=== PATIENT | female | born 1945 | race Caucasian/White ===

== ENCOUNTER → 2016-12-18 | Day surgery (SDC) | payer MEDICARE ==
[~2016-12-18] VITALS: Ht 157.5 cm; Wt 65.8 kg
[~2016-12-18] MED LIST: *HYDROmorphone PF 1 MG VIAL PERIprocedural Use ONLY ONE; ACETAMINOPHEN 1000 MG/100 ML VIAL IV ONE; BUPIVACAINE LIPOSOME PF 1.3% 20 ML VIAL INFIL ONE; BUPR300T PO; CHLORHEXIDINE GLUCONATE 2 % 1 PACK (2 CLOTHS) TOPICAL PRN; DILA2TAB2 PO; DO NOT ADM ANY ANTICOAGULANT DRUGS PRN; DULO1CAP2 PO; ERYTHROMYCIN 0.5% OPTH OINT 1 GM TUBO ONE; ERYTHROMYCIN 0.5% OPTH OINT 3.5 GM TUBO ONE; FAMOTIDINE 20 MG/2 ML VIAL ONE; FLUT1SPR5 EACH NARE; GABA100C4 PO; GELFOAM SIZE 100 ONE; GENTAMICIN SULFATE 80 MG/2 ML VIAL ONE; HYDR-3583 PO; INSULIN HUMAN REGULAR 1,000 UNITS/10 ML VIAL SQ PRN; LACTATED RINGER'S 1000 ML INJ 1,000 ML IV ONE; LACTATED RINGER'S 1000 ML INJ 1,000 ML IV SCH; LACTATED RINGER'S 1000 ML IV PRN; LEVO125T4 PO; LIDOCAINE 1%/EPINEPHrine 1:100,000 SOLN 20 ML VIAL ONE; MEDR4PAK PO; MELO-1 PO; MEPERIDINE HCL 50 MG/ML VIAL ONE; METOPROLOL TARTRATE 25 MG TAB PO PRN; MIDAZOLAM HCL 2 MG/2 ML VIAL ONE; ONDANSETRON HCL 4 MG/2 ML VIAL IV PUSH ONE; PHENYLEPH/NS 1000 MCG/10 ML SYR IV ONE; POVIDONE IODINE 5% (ANTISEPSIS KIT) 4 APPLICATIONS EACH NARE PRN; PROPOFOL 200 MG/20 ML AMP IV ONE; SODIUM CHLORID 0.9% 500 ML IV PRN; SUMA25TA2 PO; TETRACAINE 0.5% OPTH SOLN 2 ML BTL ONE; TETRACAINE 0.5% OPTH SOLN 4 ML BTL LEFT EYE ONE; THROMBIN (TOPICAL) 5,000 UNIT VIAL ONE; TRAM50TA PO; VALA500T PO; VALP250C PO; ZOLP10TA3 PO; ceFAZolin 2 GM PREMIX 50 ML IV SCH; ceFAZolin INJ 1,000 MG VIAL IV ONE; ePHEDrine/NS 25 MG/5 ML SYR IV ONE; fentaNYL CITRATE 250 MCG/5 ML AMP ONE
[2016-12-18 07:37] VITALS: BP 109/60; PULSE 76; RESP 18; TEMP 97.9; O2SAT 95
--- NOTE | 2016-12-18 09:38 | HHI.NSPN ---
History Chief Complaint: right lateral leg and left anterior thigh pain Interval History 71-year-old female with history of chronic progressive low back pain with greater than one year of progressive severe right lateral lower extremity pain primarily L5 distribution. In the past couple of months she has developed progressive left anterior thigh pain. Exam Results Vital Signs Date Time Temp Pulse Resp B/P Pulse Ox O2 Delivery O2 Flow Rate FiO2 12/18/16 07:37 97.9 76 18 109/60 95 Physical Examination Respirations clear to auscultation Cardiac regular without murmur Abdomen soft nontender No extremity edema Posterior tibial pulses 2+ bilateral Awake alert oriented conversant and appropriate Reasonable judgment and insight No evidence of anxiety or depression Sensation intact to light touch lower extremities Strength is within normal limits major flexion and extension groups, inversion and eversion of the foot right and left lower extremity No ankle clonus Lab, Micro, Other Results Due to the patient's new onset left anterior thigh pain, a stat MRI of the lumbar spine was obtained preoperative to ensure that there was not new left L4 nerve compression. The study reveals significant progression of the patient's previously noted right L4 5 herniated nucleus pulposus, now with a more acute appearing component causing severe canal stenosis and extending up to the level of the right L4 pedicle. In addition there is no moderate left L4 5 foraminal stenosis due to ligament hypertrophy, with impingement on the exiting left L4 nerve root. Medical Decision Making Impression and Plan Impression: 1. Progression of right L4 5 herniated nucleus pulposus now with a large more acute appearing component was severe canal stenosis 2. Left L4 5 foraminal stenosis 3. Right L5 radiculopathy 4. Left L4 radiculopathy Plan: Findings were discussed and the preoperative holding area with the patient in the presence of the nursing staff. I discussed the treatment options with her. She has inquired regarding the low back pain. I advised her that the current procedure is primarily aimed at resolving the lower extremity symptoms and not necessarily the low back pain. I advised her that she has multilevel degenerative disease without significant instability and the facets at the L4 5 level. Reasonably intact. I do not see definite indication for a fusion in this patient and advised her that the success rate with effusion is probably only moderate. She appears understand the above and wishes to proceed with only the L4 5 laminectomy and discectomy. I advised her that we will need to also do a left L4 5 foraminotomy for decompression of the left L4 nerve root which is essentially the same exposure and decompression as the procedure which was initially planned. The procedure was fully discussed in detail. I have answered all her questions she appears to understand all the above and wishes to proceed with surgery today. Dhaval Zaman MD Dec 18, 2016 09:37
--- NOTE | 2016-12-18 09:45 | RADRPT ---
EXAM DATE/TIME: 12/18/2016 08:36 [facility] COMPARISON: No previous studies available for comparison. [facility], MRI [facility] Spine, February 06, 2016 INDICATIONS : Right leg pain and weakness with inability to ambulate. MEDICAL HISTORY : None. SURGICAL HISTORY : section. rt shoulder, rt hip, partial rt lung removal ENCOUNTER: Initial ACUITY: 1 day PAIN SCORE: 3/10 LOCATION: lower back TECHNIQUE: Multiplanar multisequence MRI of the lumbar spine was performed without contrast. FINDINGS: The most caudal appearing lumbar vertebra is numbered as L5. VERTEBRAE: Bone marrow signal is within normal limits. There is no anterolisthesis or retrolisthesis. CONUS: Normal level and configuration. T12-L1: There is a small central disc protrusion. However, no significant spinal canal stenosis or neural for aminal narrowing is present. L1-L2: There is disc desiccation with mild decreased disc height and a diffuse disc bulge. There is mild fac et hypertrophy. No spinal canal stenosis or neural foraminal narrowing is present. L2-L3: There is disc desiccation with a diffuse disc bulge and mild facet hypertrophy. No spinal canal steno sis is present. There is mild right neural foraminal narrowing. L3-L4: There is decreased disc height with disc desiccation and there is a small right paracentral disc prot rusion that effaces the right lateral recess and displaces the right L4 nerve root. There is overall no spinal canal stenosis. There is mild right neural foraminal stenosis. L4-L5: There is a large disc herniation in a central to right paracentral location it likely represents an e xtruded disc. It causes severe spinal canal stenosis with loss of CSF signal around the nerve roots a nd more superiorly effaces the right lateral recess. There is moderate facet and ligamentum flavum hy pertrophy at this level. There is at least mild left neural foraminal stenosis. L5-S1: There is moderate facet hypertrophy and no disc herniation, canal stenosis, or neural foraminal narro wing is visualized. The visualized paraspinous structures demonstrate no acute finding. CONCLUSION: 1. There is a large disc herniation/extrusion at the L4-L5 level in a central to right paracentral lo cation that causes severe spinal canal stenosis. 2. There is a small right paracentral disc protrusion at the L3-L4 level that effaces the right later al recess and displaces the descending right L4 nerve root. Paolo Jarvis MD on December 18, 2016 at 9:38 Board Certified Radiologist. This report was verified electronically.
--- NOTE | 2016-12-18 13:21 | PD.OP ---
Operative Report Date of Surgery: Dec 18, 2016 Preoperative Diagnosis: (1) Herniated nucleus pulposus, lumbar (2) Lumbar radiculopathy (3) Lumbar canal stenosis (4) Foraminal stenosis of lumbar region Large L4 5 herniated nucleus pulposis was sequestered fragment Right L4 5 foraminal stenosis Left L5 radiculopathy Right L4 radiculopathy L4 5 stenosis Postoperative Diagnosis: (1) Herniated nucleus pulposus, lumbar (2) Lumbar radiculopathy (3) Lumbar canal stenosis (4) Foraminal stenosis of lumbar region Large L4 5 herniated nucleus pulposis was sequestered fragment Right L4 5 foraminal stenosis Left L5 radiculopathy Right L4 radiculopathy L4 5 stenosis Procedure: 1. Bilateral L4 5 decompressive semi-laminectomy, right medial facetectomy- microtechnique 2. Right L4 5 discectomy, resection large sequestered and subannular herniated nucleus pulposus 3. Left L4 5 foraminotomy Anesthesia: Gen. Surgeon: Dhaval Zaman Brand Executive(s): Ayleen Ramirez Operation and Findings: Procedure in detail: The patient was brought into the operating room and general endotracheal anesthesia induced without difficulty. BRITTA hose and sequential compression devices were placed. The Acuña catheter was placed. Lines were established by anesthesia. The patient was positioned on the concentric Abdifatah table with the side bolsters and all extremities appropriately padded. Appropriate time-out procedure was performed with all personnel present and in agreement. 1% Xylocaine with epinephrine was used for local infiltration over the incision site which was made just to the right of midline at the L4 5 level. The incision was carried sharply down to the lumbodorsal fascia which was incised adjacent to the spinous processes. Bryan elevator was used for subperiosteal elevation of paraspinous musculature and fascia away from the lamina and spinous process. The deep self-retaining retractor was placed. The appropriate levels were verified with intraoperative C-arm. Microscope was moved into place and used for the remainder of the procedure including the closure. At the L4 5 level starting on the right side and then working across the midline to the opposite side, the TPS drill with a 5 mm bone bur followed by the 4 mm severo bur was used to remove the inferior two thirds of the more cephalad lamina and the superior aspect of the more caudal lamina along with a moderate amount of the right medial facet, taking care not to disrupt the integrity of the facet or pars intra-articularis. The hypertrophied ligamentum flavum at each level was elevated away from the thecal sac with the thin ligament dissector and resected with the 15 blade knife and the Kerrison rongeur out to the level of the deep lateral recess to completely decompress the thecal sac and exiting nerve roots. Upon gentle retraction of the thecal sac at the right L4 5 level, large pieces of sequestered soft herniated nucleus pulposis were immediately encountered ventral and slightly lateral to the thecal sac. These were removed piecemeal using the long and short blunt nerve hooks and the reverse curette along with the pituitary micro-biopsy forceps. Some of the sequestered fragments that extended across the midline to the left side as well as cephalad up to the level of the right L4 pedicle. There were numerous fragments, and it required quite a bit of cautious exploration along the ventral spinal canal to remove all of the fragments. After the sequestered fragments were removed, the 11 blade knife was used to incise the central to right L4 5 disc and annulus. Numerous pieces of herniated disc material were encountered beneath the posterior longitudinal ligament and annulus, both of which were away from the underlying vertebral body by the extensive disc herniation. Once most of the central disc herniation was removed, there was a large tear in the central annulus which was encountered. Annulus was quite loose from the underlying disc herniation, and much of the annulus was removed in order to alleviate any compression on the ventral thecal sac from the torn annulus. Any loose pieces of disc material within the L4 5 intervertebral space were carefully removed with the pituitary biopsy forceps. Once the decompression and discectomy were completed, the integrity of the L4 5 level including the facet was evaluated by intraoperative distraction and manipulation of the L4 5 vertebral bodies and facet. There did not appear to be any significant instability, and the facet capsule was intact and relatively normal in appearance. Thus despite the severity of the disc herniation and the lack of significant residual disc material in the interspace, there was no definite evidence of instability which would require a fusion. The exiting nerve roots were followed to the level of the medial pedicle to ensure that they were well decompressed. At the L4 5 level on the left side, the superior aspect of the more inferior facet along with hypertrophied ligament at the medial foramen were removed with the Kerrison rongeur to perform the left L4 5 foraminotomy. The nerve roots appeared well decompressed at the end of the procedure. No spinal fluid leakage was encountered. The disc and annulus at each level was visualized to make sure that there was no significant disc displacement or herniation. Bleeding was carefully controlled with the bipolar forceps. The closure was performed with 0 Vicryl interrupted for the deep and superficial fascia, with 3-0 Vicryl interrupted subcutaneous closure, and 4-0 Vicryl running subcuticular closure. A dressing of sterile Mastisol, Steri- Strips, and Primapore was placed. The patient was taken to recovery room in stable condition. All counts were correct at the end of the case. Estimated blood loss was 50 cc. No specimen was sent to pathology Dhaval Zaman MD Dec 18, 2016 13:21
--- NOTE | 2016-12-18 14:53 | RADRPT ---
EXAM DATE/TIME: 12/18/2016 10:29 [facility] COMPARISON: No previous studies available for comparison. INDICATIONS : Herniated disk. MEDICAL HISTORY : None. SURGICAL HISTORY : None. ENCOUNTER: Initial ACUITY: 1 day PAIN SCORE: 0/10 LOCATION: Bilateral lumbar spine FINDINGS: A single coned-down crosstable lateral view of the lower lumbar spine was obtained using a matrix cam era. This demonstrates a metallic probe posterior to L4-5 disc space. Degenerative disc changes are p resent with disc space narrowing at this level. The study is labeled assuming 5 nonrib-bearing lumbar type vertebra. CONCLUSION: Limited localization study. Marty Myles MD on December 18, 2016 at 14:50 Board Certified Radiologist. This report was verified electronically.
[2016-12-18 15:09] VITALS: BP 95/58; PULSE 69; RESP 16; TEMP 97; O2SAT 94
== END | disposition home or self-care (01) ==
LOC: HSDC 06:52
PROVIDERS: ATTEND Neurological Surgery
DX: M51.16 Intervertebral disc disorders with radiculopathy, lumbar region (principal); M48.06 Spinal stenosis, lumbar region
CPT/HCPCS: 00630; 63030; 72020; 72148; 76000; C9290; J0131; J0690; J1170; J1580; J2175; J2250; J2370; J2405; J3010; J7120

== ENCOUNTER → 2017-12-02 | Outpatient (CLI) | payer MEDICARE ==
[~2017-12-02] MED LIST changes: -*HYDROmorphone PF 1 MG VIAL PERIprocedural Use ONLY ONE; -ACETAMINOPHEN 1000 MG/100 ML VIAL IV ONE; +ALPR0.25 PO; -BUPIVACAINE LIPOSOME PF 1.3% 20 ML VIAL INFIL ONE; +CALC1TAB87 PO; -CHLORHEXIDINE GLUCONATE 2 % 1 PACK (2 CLOTHS) TOPICAL PRN; +COMMODE 3-IN-11 MIS; +CPMMACHINE; -DILA2TAB2 PO; -DO NOT ADM ANY ANTICOAGULANT DRUGS PRN; -ERYTHROMYCIN 0.5% OPTH OINT 1 GM TUBO ONE; -ERYTHROMYCIN 0.5% OPTH OINT 3.5 GM TUBO ONE; -FAMOTIDINE 20 MG/2 ML VIAL ONE; -GELFOAM SIZE 100 ONE; -GENTAMICIN SULFATE 80 MG/2 ML VIAL ONE; -HYDR-3583 PO; +HYDR2TAB PO; -INSULIN HUMAN REGULAR 1,000 UNITS/10 ML VIAL SQ PRN; -LACTATED RINGER'S 1000 ML INJ 1,000 ML IV ONE; -LACTATED RINGER'S 1000 ML INJ 1,000 ML IV SCH; -LACTATED RINGER'S 1000 ML IV PRN; -LIDOCAINE 1%/EPINEPHrine 1:100,000 SOLN 20 ML VIAL ONE; -MEDR4PAK PO; -MELO-1 PO; +MELO15TA20; -MEPERIDINE HCL 50 MG/ML VIAL ONE; -METOPROLOL TARTRATE 25 MG TAB PO PRN; -MIDAZOLAM HCL 2 MG/2 ML VIAL ONE; +OMEP20TA93 PO; -ONDANSETRON HCL 4 MG/2 ML VIAL IV PUSH ONE; -PHENYLEPH/NS 1000 MCG/10 ML SYR IV ONE; -POVIDONE IODINE 5% (ANTISEPSIS KIT) 4 APPLICATIONS EACH NARE PRN; +PRAV20TA2 PO; -PROPOFOL 200 MG/20 ML AMP IV ONE; -SODIUM CHLORID 0.9% 500 ML IV PRN; +SUCR1TAB PO; -TETRACAINE 0.5% OPTH SOLN 2 ML BTL ONE; -TETRACAINE 0.5% OPTH SOLN 4 ML BTL LEFT EYE ONE; -THROMBIN (TOPICAL) 5,000 UNIT VIAL ONE; +VITA2000 PO; +WALKER WHEELS/F1 MIS; -ceFAZolin 2 GM PREMIX 50 ML IV SCH; -ceFAZolin INJ 1,000 MG VIAL IV ONE; -ePHEDrine/NS 25 MG/5 ML SYR IV ONE; -fentaNYL CITRATE 250 MCG/5 ML AMP ONE
== END ==
LOC: CPRE 10:13
PROVIDERS: ATTEND Orthopaedic Surgery
DX: M17.11 Unilateral primary osteoarthritis, right knee (principal); M79.609 Pain in unspecified limb

== ENCOUNTER 2017-12-09 05:41 | Inpatient (IN) | payer MEDICARE ==
[~2017-12-09] VITALS: Ht 157.5 cm; Wt 68.8 kg
[~2017-12-09 05:41] MED LIST changes: -COMMODE 3-IN-11 MIS; -CPMMACHINE; -MELO15TA20; -OMEP20TA93 PO; -PRAV20TA2 PO; -SUCR1TAB PO; -TRAM50TA PO; -VALP250C PO; -WALKER WHEELS/F1 MIS
[2017-12-09] MEDS ORDERED: DEXAMETHASONE SOD PHOS 20 MG/5 ML VIAL IV PUSH ONE (06:15)
[2017-12-09] MEDS ORDERED: LACTATED RINGER'S 1000 ML IV PRN (06:15)
[2017-12-09] MEDS ORDERED: POVIDONE IODINE 7.5% SCRUB 118 ML BOTTLE TOPICAL SCH (06:15)
[2017-12-09] MEDS ORDERED: SODIUM CHLORID 0.9% 500 ML IV PRN (06:15)
[2017-12-09] MEDS ORDERED: POVIDONE IODINE 5% (ANTISEPSIS KIT) 4 APPLICATIONS EACH NARE PRN (06:15)
[2017-12-09] MEDS ORDERED: METOPROLOL TARTRATE 25 MG TAB PO PRN (06:15)
[2017-12-09] MEDS ORDERED: VANCOMYCIN 1 GM/200 ML PREMIX ON-CALL IV SCH (06:15)
[2017-12-09] MEDS ORDERED: CHLORHEXIDINE GLUCONATE 4% SOLN 120 ML BTL TOPICAL SCH (06:15)
[2017-12-09] MEDS ORDERED: CHLORHEXIDINE GLUCONATE 2 % 1 PACK (2 CLOTHS) TOPICAL PRN (06:15)
[2017-12-09] MEDS ORDERED: PRAV20TA2 PO (06:32)
[2017-12-09] MEDS ORDERED: SUCR1TAB PO (06:34)
[2017-12-09] MEDS ORDERED: OMEP20TA93 PO (06:34)
[2017-12-09 06:39] VITALS: PULSE 71
--- NOTE | 2017-12-09 07:15 | HHI.DCPOC ---
Discharge Care Plan Diagnosis: (1) Primary localized osteoarthrosis, lower leg (2) Status post total knee replacement, right Your Health Problems Are: Difficulty with ADL Goals to Promote Your Health * To prevent worsening of your condition and complications * To maintain your health at the optimal level Directions to Meet Your Goals Take your medications as prescribed Follow your dietary instruction Follow activity as directed Keep your appointments as scheduled Take your immunizations and boosters as scheduled If your symptoms worsen call your PCP, if no PCP go to Urgent Care Center or Emergency Room Smoking is Dangerous to Your Health. Avoid second hand smoke Call the 24-hour hour crisis hotline for domestic abuse at Ahmet Hayward Dec 09, 2017 07:15
--- NOTE | 2017-12-09 07:16 | HHI.FF ---
Face to Face Verification Diagnosis: (1) Status post total knee replacement, right (2) Primary localized osteoarthrosis, lower leg Physical Therapy Gait training, Transfer training, bed to chair Knee: Total knee Right LE Weight Bearing: WB as tolerated Right LE Range of Motion: Active ROM Nursing Nursing: Lazarus teaching Dressing Changes: Do not change dressing Additional Instructions First dressing change in the office. I have seen patient Sahara Fajardo on 12/09/17. My clinical findings support the need for the requested home health care services because: Limited ability to care for self High risk of falls I certify that my clinical findings support that this patient is homebound because: Post-op weakness Unsteady gait/balance Ahmet Hayward Dec 09, 2017 07:16
[2017-12-09] MEDS ORDERED: CPMMACHINE (07:18)
[2017-12-09] MEDS ORDERED: COMMODE 3-IN-11 MIS (07:18)
[2017-12-09] MEDS ORDERED: WALKER WHEELS/F1 MIS (07:18)
[2017-12-09] MEDS ORDERED: BUPIVACAINE LIPOSOME PF 1.3% 20 ML VIAL ONE (07:23)
[2017-12-09] MEDS ORDERED: SODIUM CHLORIDE 0.9% 20 ML VIAL ONE (07:24)
[2017-12-09] MEDS ORDERED: ACETAMINOPHEN 1000 MG/100 ML 100 ML IV ONE (07:36)
[2017-12-09] MEDS ORDERED: MIDAZOLAM HCL 2 MG/2 ML VIAL ONE (07:37)
[2017-12-09] MEDS ORDERED: HYDROmorphone HCL PF 2 MG/ML VIAL ONE (07:37)
[2017-12-09] MEDS: ceFAZolin 2 GM PREMIX 50 ML IV SCH ×2 (08:25→08:35)
[2017-12-09] MEDS ORDERED: ROPIVACAINE PERI-ARTICULAR INJECTION. P-ARTICULR SCH ×5 (08:30)
[2017-12-09] MEDS ORDERED: SODIUM CHLORIDE 0.9% IV SCH ×2 (08:30→13:00)
[2017-12-09] MEDS ORDERED: TRANEXAMIC ACID IV SCH ×2 (08:30→13:00)
[2017-12-09] MEDS ORDERED: GENTAMICIN SULFATE 80 MG/2 ML VIAL ONE (08:52)
[2017-12-09] MEDS ORDERED: diphenhydrAMINE HCL 50 MG/ML VIAL IV PUSH PRN (10:45)
[2017-12-09] MEDS ORDERED: ONDANSETRON HCL 4 MG/2 ML VIAL IVP PRN (10:45)
[2017-12-09] MEDS ORDERED: ALUMINUM/MAGNESIUM/SIMETH 30 ML CUP PO PRN (10:45)
[2017-12-09] MEDS ORDERED: MAGNESIUM HYDROXIDE SUSP 30 ML CUP PO PRN (10:45)
[2017-12-09] MEDS ORDERED: ZOLPIDEM TARTRATE 10 MG TAB PO PRN (10:45)
[2017-12-09] MEDS ORDERED: BISACODYL 10 MG SUPP RECTAL PRN (10:45)
[2017-12-09] MEDS ORDERED: Post-op Orders (for Pharmacy) XX ONE (10:45)
[2017-12-09] MEDS ORDERED: NALOXONE HCL 0.4 MG/ML AMP IV PUSH PRN (10:45)
[2017-12-09] MEDS ORDERED: HYDROmorphone HCL 2 MG TAB PO PRN (10:45)
[2017-12-09] MEDS ORDERED: oxyCODONE/ACETAMINOPHEN 10 MG/325 MG TAB PO PRN (10:45)
[2017-12-09] MEDS ORDERED: ALPRAZolam 0.25 MG TAB PO PRN (10:45)
[2017-12-09] MEDS ORDERED: SUMAtriptan SUCCINATE 25 MG TAB PO PRN (10:45)
[2017-12-09] MEDS ORDERED: HYDROmorphone HCL PF 1 MG/ML VIAL IV PUSH PRN (10:45)
--- NOTE | 2017-12-09 10:46 | PD.OP ---
cc: Herbie Price MD Operative Report Date of Surgery: Dec 09, 2017 Preoperative Diagnosis: Left knee severe arthritis Postoperative Diagnosis: Same Procedure: Left total knee arthroplasty Anesthesia: Adductor canal block and general Surgeon: Herbie Price Legal Transcriber(s): RUSLAN Arciniega The surgical procedure was assisted by my Advanced Registered Nurse Practitioner. My DOUBLE CUT SAWYER presence was necessary throughout this case for the manipulation and positioning of the surgical extremity. My DOUBLE CUT SAWYER was assisting me throughout the duration of this procedure. The skill set of an Advance Registered Nurse Practitioner was medically necessary to complete this procedure. During the surgical case, the surgical corsetier was working at the back table and the Advance Registered Nurse Practitioner was directly assisting me. Operation and Findings: IMPLANTS: DePuy Attune: Patella: size 32. Femur, posterior stabilized size 5. Tibia, rotating platform size 4. Tibial insert, rotating platform, posterior stabilized size 7 mm thickness. ESTIMATED BLOOD LOSS: 200 cc TOURNIQUET TIME: 46 minutes at 250 mmHg pressure. JUSTIFICATION FOR PROCEDURE: The patient has end-stage osteoarthritis to the knee. There is an attached conservative measures pathway form in the chart that describes the nonoperative measures that were undertaken prior to consideration of surgical management. The patient understood the risks and benefits of surgical management. See my office notes for further details PROCEDURE: The patient was brought back to the operative theatre. Adequate anesthesia was obtained. The patient received intravenous vancomycin and Ancef. The lower extremity was prepped and draped in the usual sterile fashion.The leg was exsanguinated, the tourniquet was raised. A standard anterior incision was performed followed by medial parapatellar arthrotomy was performed. End-stage arthritis was identified. Osteotomy of the patella was performed. We drilled holes for the patella. We trialed the patella component. We placed an intramedullary guide into the distal femur. We ultimately resected 13 mm off of the distal femur in 5 degrees of valgus. The remnants of the ACL and PCL were resected. Osteotomy of the proximal tibia was performed, resecting 7 mm off of the medial side. This was done with 3 degrees of posterior slope using an extramedullary guide. The distal end of the guide was placed in the mid aspect of the ankle. The femur was sized, and four chamfer cuts were completed in 3 of external rotation. We then cut the central box in the distal femur to replace the PCL. We resected the remnants of the menisci and removed osteophytes off of the femur and tibia. We then trialed the knee. We punched the tibia for the keel, and then used standard technique to cement in components. Excess cement was removed. We trialed the knee again and the final polyethylene thickness was chosen to provide extension to 0 degrees, and flexion of 140 degrees to gravity. The ligaments were appropriately balanced. Lateral release was necessary to obtain excellent patellofemoral tracking. The tourniquet was released and adequate hemostasis was obtained. An intra- articular injection of a ropivacaine cocktail was injected. The posterior knee was inspected for excess cement, which was removed. The final polyethylene was put into position after thorough irrigation. We then closed deep fascia with a #2 Stratafix followed by skin with 2-0 Vicryl followed by mirna. Postop plan is to weight-bear as tolerated. DVT prophylaxis will be performed with Gi, BRITTA jurado, early mobilization, and Lovenox followed by aspirin. Herbie Price MD Dec 09, 2017 10:46
[2017-12-09] MEDS ORDERED: DO NOT ADM ANY ANTICOAGULANT DRUGS PRN (11:20)
--- NOTE | 2017-12-09 11:50 | RADRPT ---
EXAM DATE/TIME: 12/09/2017 11:22 [facility] COMPARISON: No previous studies available for comparison. INDICATIONS : Post RT knee replacement. Pt unresponsive. MEDICAL HISTORY : None. SURGICAL HISTORY : None. ENCOUNTER: Initial ACUITY: 1 day PAIN SCORE: Non-responsive. LOCATION: Right [place] FINDINGS: AP and lateral views of the knee following arthroplasty reveals a prosthesis in anatomic alignment. F racture is not appreciated. Surgical drain is evident CONCLUSION: Status post total knee arthroplasty. Lito Lopez MD FACR on December 09, 2017 at 11:46 Board Certified Radiologist. This report was verified electronically.
[2017-12-09] MEDS ORDERED: NEOSTIGMINE 5 MG/5 ML SYRINGE IV PUSH ONE ×2 (12:00)
[2017-12-09] MEDS ORDERED: LIDOCAINE HCL 1% PF 5 ML SYRINGE OTHER ONE ×2 (12:00)
[2017-12-09] MEDS ORDERED: LACTATED RINGER'S 1000 ML INJ 1,000 ML IV ONE (12:00)
[2017-12-09] MEDS ORDERED: PROPOFOL 200 MG/20 ML AMP IV ONE ×2 (12:00)
[2017-12-09] MEDS ORDERED: ROCURONIUM INJ 50 MG/5 ML SYRINGE IV PUSH ONE ×2 (12:00)
[2017-12-09] MEDS ORDERED: GLYCOPYRROLATE 1 MG/5 ML SYRINGE IV PUSH ONE ×2 (12:00)
[2017-12-09] MEDS ORDERED: ONDANSETRON HCL 4 MG/2 ML VIAL IV ONE ×2 (12:00)
[2017-12-09] MEDS ORDERED: DEXAMETHASONE SOD PHOS 4 MG/ML VIAL IV ONE (12:00)
[2017-12-09] MEDS: SODIUM CHLOR 0.9% 1000 ML INJ 1,000 ML IV SCH ×2 (13:00→21:41)
[2017-12-09] MEDS ORDERED: HYDROmorphone HCL PF 2 MG/ML VIAL IV PUSH PRN ×2 (13:00)
--- NOTE | 2017-12-09 15:03 | PD.CONS ---
HPI Service [facility] Hospitalists Consult Requested By Primary Care Physician Mike Burrell MD Diagnoses: Review of Systems Other left knee pain Past Family Social History Past Medical History 1) osteoarthritis 2) osteopenia 3) hyperparathyroidism, 4) chronic pain 5) borderline diabetes, diet control 6) depression 7) hyperlipidemia 8) hypothyroidism 9) lumbar radiculopathy 10) fibromyalgia 11) osteopenia 12) anxiety 13) depression 14) migraines 15. barretts esophagus 1) bladder suspension in 1999 2) section 2 3) right lower lobe lobectomy 4) radiofrequency rhizotomy 5) repair of brow ptosis 2010 6) tonsillectomy and adenoidectomy 7) right maciel 8) right shoulder rotator cuff 9) Bilateral L4 5 decompressive semi-laminectomy, Right L4 5 discectomy, resection large sequestered and subannular herniated nucleus pulposus Left L4 5 foraminotomy Reported Medications Omeprazole 20 Mg Tab 20 Mg PO DAILY Sucralfate 1 Gram Tab 1 Gm PO DAILY on empty stomach Pravastatin 20 Mg Tab 20 Mg PO DAILY Alprazolam 0.25 Mg Tab 0.25 Mg PO Q6H PRN Calcium 600 with Vitamin D (Calcium Carbonate-Cholecalciferol) 600-400 mg-Unit Tab 1 Tab PO DAILY Vitamin D3 (Cholecalciferol) 2,000 Unit Cap 2,000 Units PO DAILY Sumatriptan (Sumatriptan Succinate) 25 Mg Tab 25 Mg PO ONCE PRN If a satisfactory response has not been obtained at 2 hours, a second dose may be administered Valacyclovir (Valacyclovir HCl) 500 Mg Tab 500 Mg PO DAILY Duloxetine DR (Duloxetine HCl) 30 Mg Capdr 30 Mg PO BID Flonase Nasal [place] (Fluticasone Nasal [place]) 50 Mcg/Act [place] 50 Mcg EACH NARE BID Zolpidem (Zolpidem Tartrate) 10 Mg Tab 10 Mg PO HS PRN Levothyroxine (Levothyroxine Sodium) 125 Mcg Tab 125 Mcg PO DAILY Bupropion HCl ER 24 HR (Bupropion HCl) 300 Mg Tab 300 Mg PO DAILY Allergies: Coded Allergies: milnacipran (Unverified Allergy, Severe, HYSTERICAL, 12/09/17) HYSTERICALLY CRYING morphine (Unverified Allergy, Severe, SOB, 12/09/17) hydrocodone (Unverified Adverse Reaction, Unknown, Migraine, 12/09/17) Family History nc Social History no etoh/tob Physical Exam Vital Signs heart reg lung cta abd s/nt ext left knee bandaged. Vital Signs Date Time Temp Pulse Resp B/P (MAP) Pulse Ox O2 Delivery O2 Flow Rate FiO2 12/09/17 12:00 78 15 112/59 (76) 94 Nasal Cannula 4 12/09/17 11:45 77 15 118/58 (78) 95 Nasal Cannula 4 12/09/17 11:30 78 15 114/65 (81) 94 Nasal Cannula 4 12/09/17 11:20 97.6 82 16 118/60 (79) 93 Nasal Cannula 4 12/09/17 08:19 71 18 103/62 (76) 98 12/09/17 07:25 100 Nasal Cannula 2 12/09/17 06:39 71 12/09/17 06:34 98.0 72 18 116/63 (80) 97 Assessment and Plan Problem List: (1) Status post total left knee replacement ICD Codes: Z96.652 - Presence of left artificial knee joint Status: Acute Plan: 1. s/p left TKA (2) Hypothyroid ICD Codes: E03.9 - Hypothyroid Status: Chronic (3) Depression ICD Codes: F32.9 - Depression Status: Chronic Skyler Irving MD Dec 09, 2017 15:03
[2017-12-09 15:30] VITALS: BP 112/57; PULSE 76; RESP 18; TEMP 97.3; O2SAT 95
[2017-12-09 20:00] VITALS: BP 89/57; PULSE 65; RESP 16; TEMP 97.7; O2SAT 94
[2017-12-09 20:23] VITALS: O2SAT 95
[2017-12-09] MEDS: DULoxetine HCl DR 30 MG CAP PO SCH (21:20)
[2017-12-09] MEDS: oxyCODONE/ACETAMINOPHEN 10 MG/325 MG TAB PO PRN (21:21)
[2017-12-09] MEDS: FLUTICASONE PROPIONATE 50 MCG/ACT 16 GM NASAL SPRAY EACH NARE SCH (21:22)
[2017-12-09 21:44] VITALS: BP 115/68
[2017-12-09] MEDS ORDERED: SUCRALFATE 1 GM TAB PO SCH (22:00)
[2017-12-10] VITALS: BP 100/55; PULSE 91; RESP 16; TEMP 97.4; O2SAT 96
[2017-12-10] MEDS: oxyCODONE/ACETAMINOPHEN 10 MG/325 MG TAB PO PRN ×4 (01:34→18:29)
[2017-12-10 04:00] VITALS: BP 89/53; PULSE 72; RESP 18; TEMP 97.2; O2SAT 96
[2017-12-10 05:19] LABS: HEMATOCRIT 30.7 % (35.0-46.0); HEMOGLOBIN 9.9 GM/DL (11.6-15.3); MEAN CELL VOLUME 97.9 FL (80.0-100.0); MEAN CORPUSCULAR HEMOGLOBIN 31.6 PG (27.0-34.0); MEAN CORPUSCULAR HGB CONC 32.3 % (32.0-36.0); MEAN PLATELET VOLUME 9.3 FL (7.0-11.0); PLATELET COUNT 236 TH/MM3 (150-450); RED BLOOD COUNT 3.14 MIL/MM3 (4.00-5.30); RED CELL DISTRIBUTION WIDTH 15.9 % (11.6-17.2); WHITE BLOOD COUNT 12.5 TH/MM3 (4.0-11.0)
[2017-12-10 05:43] VITALS: BP 112/58
[2017-12-10] MEDS ORDERED: LEVOTHYROXINE SODIUM 125 MCG TAB PO SCH (06:00)
[2017-12-10 08:00] VITALS: BP 92/51; PULSE 79; RESP 18; TEMP 98.3; O2SAT 96
[2017-12-10] MEDS ORDERED: DEXAMETHASONE SOD PHOS 20 MG/5 ML VIAL IV ONE (08:00)
[2017-12-10] MEDS: DULoxetine HCl DR 30 MG CAP PO SCH (08:45)
[2017-12-10] MEDS: SODIUM CHLOR 0.9% 1000 ML INJ 1,000 ML IV SCH (08:46)
[2017-12-10] MEDS: FLUTICASONE PROPIONATE 50 MCG/ACT 16 GM NASAL SPRAY EACH NARE SCH (08:48)
[2017-12-10] MEDS ORDERED: PANTOPRAZOLE SOD 20 MG DELAYED RELEASE TAB PO SCH (09:00)
[2017-12-10] MEDS ORDERED: buPROPion HCL 150 MG SUSTAINED RELEASE TAB PO SCH (09:00)
[2017-12-10] MEDS ORDERED: PRAVASTATIN SOD 20 MG TAB PO SCH (09:00)
[2017-12-10] MEDS ORDERED: valACYclovir HCL 500 MG TAB PO SCH (09:00)
[2017-12-10] MEDS ORDERED: ENOXAPARIN SODIUM 40 MG/0.4 ML SYRINGE SQ SCH (10:30)
[2017-12-10] MEDS ORDERED: SUCRALFATE 1 GM TAB PO SCH (11:00)
[2017-12-10 11:44] VITALS: BP 100/60; PULSE 78; RESP 18; TEMP 98; O2SAT 94
[2017-12-10 16:00] VITALS: BP 100/55; PULSE 81; RESP 18; TEMP 98.2; O2SAT 94
--- NOTE | 2017-12-10 18:16 | PD.ORT.PN ---
Subjective Subjective Remarks pain well controlled Objective Vitals Vital Signs Date Time Temp Pulse Resp B/P (MAP) Pulse Ox O2 Delivery O2 Flow Rate FiO2 12/10/17 16:00 98.2 81 18 100/55 (70) 94 12/10/17 11:44 98.0 78 18 100/60 (73) 94 12/10/17 08:00 98.3 79 18 92/51 (65) 96 12/10/17 05:43 112/58 (76) 12/10/17 04:00 97.2 72 18 89/53 (65) 96 12/10/17 00:00 97.4 91 16 100/55 (70) 96 12/09/17 21:44 115/68 (84) 12/09/17 20:23 95 Nasal Cannula 2.00 12/09/17 20:00 97.7 65 16 89/57 (68) 94 I/O 12/09/17 12/09/17 12/09/17 12/10/17 12/10/17 12/10/17 07:00 15:00 23:00 07:00 15:00 23:00 Intake Total 1706.88 ml 100 ml 460 ml 960 ml Output Total 500 ml Balance 1206.88 ml 100 ml 460 ml 960 ml Intake Oral 360 ml 960 ml IV Total 306.88 ml 100 ml 100 ml Other 1400 ml Output Urine Total 400 ml Estimated Blood Loss 100 ml # Voids 2 3 8 # Bowel Movements 0 Result Diagram: 12/10/17 0435 Objective Remarks Right knee: min drainage, no erythema, mild echymosis, mild swelling, 2+ DP, EHL /TA intact, calf soft and NT Assessment & Plan Assessment and Plan POD # 1 s/p R TKA doing well Lon[facility] WBAT d/c home with [facility] Herbie Price MD Dec 10, 2017 18:16
[2017-12-10] MEDS ORDERED: MULTIVITAMINS/MINERALS THERAPEUTIC TAB PO SCH (21:00)
[2017-12-10] MEDS ORDERED: DOCUSATE SODIUM 100 MG CAP PO SCH (21:00)
--- NOTE | 2017-12-12 13:05 | HHI.DS ---
Discharge Summary Admission Date Dec 09, 2017 at 05:41 Discharge Date: Dec 10, 2017 Admitting Diagnosis Primary localized OA, lower leg Status post total knee replacement, right Diagnosis: (1) Status post total knee replacement, right Diagnosis: Principal ICD Codes: Z96.651 - Presence of right artificial knee joint (2) Primary localized osteoarthrosis, lower leg Diagnosis: Principal ICD Codes: M17.10 - Unilateral primary osteoarthritis, unspecified knee Procedures Right TKA Brief History This is a 72 year old female patient with severe OA of the right knee CBC/BMP: 12/10/17 0435 Significant Findings Laboratory Tests Test 12/10/17 04:35 White Blood Count 12.5 TH/MM3 (4.0-11.0) Red Blood Count 3.14 MIL/MM3 (4.00-5.30) Hemoglobin 9.9 GM/DL (11.6-15.3) Hematocrit 30.7 % (35.0-46.0) PE at Discharge Right knee: min drainage, no erythema, mild echymosis, mild swelling, 2+ DP, EHL /TA intact, calf soft and NT Hospital Course The patient was admitted to the hospital for severe OA of the right knee to have a right TKA. The patient tolerated the surgery well with no complications. The patient is WBAT. The patient was placed on Lovenox followed by ASA for DVT prophylaxis. The patient was discharged home with home health and will f/u in the office with Dr. Price or RUSLAN Starks as previously scheduled. Pt Condition on Discharge: Stable Discharge Disposition: Disch w/ Home Health Serv Discharge Instructions Diet Instructions: As Tolerated, No Restrictions Activities You Can Perform: Weight Bearing as Elisa Activities to Avoid: Strenuous Activity Follow up Referrals: Orthopedics with Herbie Price MD New Medications: Commode 3-in-1 (Commode 3-in-1) 1 Mis Mis EA .XX DIRECTED, #1 0 Refills CPM-Continuous Passive Motion Machine (CPM-Continuous Passive Motion Machine) 1 Ea Device EA .XX DIRECTED, #1 0 Refills Walker with Front Wheels (Walker with Front Wheels) 1 Mis Mis EA .XX DIRECTED, #1 0 Refills Continued Medications: Alprazolam (Alprazolam) 0.25 Mg Tab 0.25 MG PO Q6H PRN for ANXIETY, TAB 0 Refills Bupropion HCl ER 24 HR (Bupropion HCl ER 24 HR) 300 Mg Tab 300 MG PO DAILY for Control Depression, TAB 0 Refills Calcium Carbonate-Cholecalciferol (Calcium 600 with Vitamin D) 600-400 mg-Unit Tab 1 TAB PO DAILY for Calcium Supplement, TAB 0 Refills Cholecalciferol (Vitamin D3) 2,000 Unit Cap 2000 UNITS PO DAILY for Nutritional Supplement, #1 BOTTLE [address] (Duloxetine DR) 30 Mg Capdr 30 MG PO BID, #30 CAP 0 Refills Fluticasone Nasal [place] (Flonase Nasal [place]) 50 Mcg/Act [place] 50 MCG EACH NARE BID for Allergies, #1 BOTTLE 0 Refills Levothyroxine (Levothyroxine) 125 Mcg Tab 125 MCG PO DAILY for Thyroid, #30 TAB 0 Refills Omeprazole (Omeprazole) 20 Mg Tab 20 MG PO DAILY, #30 TAB 0 Refills Pravastatin (Pravastatin) 20 Mg Tab 20 MG PO DAILY for Cholesterol Management, #30 TAB 0 Refills Sucralfate (Sucralfate) 1 Gram Tab 1 GM PO DAILY for Duodenal ulcer, #90 TAB 0 Refills on empty stomach Sumatriptan (Sumatriptan) 25 Mg Tab 25 MG PO ONCE PRN for MIGRAINE HEADACHE, TAB 0 Refills If a satisfactory response has not been obtained at 2 hours, a second dose may be administered Valacyclovir (Valacyclovir) 500 Mg Tab 500 MG PO DAILY for Mgmt Viral Infection, #30 TAB 0 Refills Zolpidem (Zolpidem) 10 Mg Tab 10 MG PO HS PRN for INSOMNIA, TAB 0 Refills Discontinued Medications: Hydromorphone (Hydromorphone) 2 Mg Tab 2 MG PO Q4H PRN for PAIN, #90 TAB 0 Refills Ahmet Hayward Dec 12, 2017 13:05
== END 2017-12-10 19:16 | disposition home health service (06) | DRG 470 ==
LOC: HSDI 05:41 → N06B 15:17
PROVIDERS: ADMIT Orthopaedic Surgery; ATTEND Orthopaedic Surgery
PROC: 0SRC0J9 Replacement of Right Knee Joint with Synthetic Substitute, Cemented, Open Approach (ICD-10-PCS; principal; 2017-12-09 08:43)
DX: M17.11 Unilateral primary osteoarthritis, right knee (principal); F32.9 Major depressive disorder, single episode, unspecified; E03.9 Hypothyroidism, unspecified; E78.5 Hyperlipidemia, unspecified; M79.7 Fibromyalgia; M85.80 Other specified disorders of bone density and structure, unspecified site; G89.29 Other chronic pain; M51.16 Intervertebral disc disorders with radiculopathy, lumbar region; F41.9 Anxiety disorder, unspecified; K22.70 Barrett's esophagus without dysplasia; Z96.641 Presence of right artificial hip joint
CPT/HCPCS: 73560; 85027; 86850; 86900; 86901; C1776; C9290; J0131; J0690; J0735; J1100; J1170; J1580; J1650; J1885; J2250; J2405; J2710; J2795; J3010; J3370; J7030; J7120; L1830

== ENCOUNTER 2018-01-22 17:16 | Emergency (ER) | payer MEDICARE ==
[~2018-01-22] VITALS: Ht 157.5 cm; Wt 63.0 kg
[~2018-01-22 17:16] MED LIST changes: +COMMODE 3-IN-11 MIS; +CPMMACHINE; -GABA100C4 PO; -HYDR2TAB PO; +OMEP20TA93 PO; +PRAV20TA2 PO; +SUCR1TAB PO; +WALKER WHEELS/F1 MIS
[2018-01-22 17:37] VITALS: BP 105/64; PULSE 94; RESP 20; TEMP 97.4; O2SAT 96
[2018-01-22] MEDS ORDERED: ASPI-183 PO (18:07)
[2018-01-22 18:11] VITALS: BP 107/67; PULSE 75; RESP 16; O2SAT 99
--- NOTE | 2018-01-22 18:16 | PD ---
HPI Chief Complaint: Respiratory Symptoms Time Seen by Provider: 18:11 Travel History International Travel<30 days: No Contact w/Intl Traveler<30days: No Traveled to known affect area: No History of Present Illness HPI This is a 72-year-old female who presents today with bites of shortness of breath and cough. Patient states that she is 6 weeks post right total knee replacement. She states that over the last week or so she has had pain in her knee and in her calf. She is also reports pain in her right inguinal area. She states that over the last several days she has become short of breath and has unrelenting cough. There is no reported fevers, chills. There is some mild white phlegm with her cough. There is no green or dark coloration. The patient states that she also was seen by her primary care doctor, Dr. Navarro who ordered an outpatient x-ray and some blood work. He reportedly ordered a screening test for pulmonary embolus which came back positive and she is thus here to rule out pulmonary embolus. PFSH Past Medical History Anxiety: Yes Depression: Yes Heart Rhythm Problems: No Cancer: No Cardiac Catheterization: No Cardiovascular Problems: No High Cholesterol: Yes Chemotherapy: No Congestive Heart Failure: No Diabetes: No Endocrine: No Gastrointestinal Disorders: Yes (GERD) Genitourinary: Yes (INCONTINENCE) Hepatitis: No Hiatal Hernia: Yes Immune Disorder: Yes (FIBROMYALGIA) Kidney Stones: No Medical other: No Musculoskeletal: Yes (OA) Neurologic: Yes (RUPTURED DISK, DDD) Psychiatric: Yes (ANXIETY, DEPRESSION) Reproductive: No Respiratory: Yes (HX RIGHT LOWER LOBECTOMY) Radiation Therapy: No Renal Failure: No Thyroid Disease: Yes Tetanus Vaccination: Unknown Influenza Vaccination: No Past Surgical History AICD: No Coronary Artery Bypass Graft: No Ear Surgery: No Eye Surgery: Yes (2011 AYAZ UPPER BLEPROPLASTY) Genitourinary Surgery: No Gynecologic Surgery: Yes ( X2) Joint Replacement: Yes (RIGHT HIP) Neurologic Surgery: Yes (LUMBAR LAMINECTOMY) Oral Surgery: Yes (TONSILLECTOMY, RHINOPLASTY) Pacemaker: No Thoracic Surgery: Yes (RIGHT LOBECTOMY) Other Surgery: Yes Family History Family Myocardial Infarction: Yes Social History Alcohol Use: No Tobacco Use: No Substance Use: No Allergies-Medications (Allergen,Severity, Reaction): Coded Allergies: milnacipran (Unverified Allergy, Severe, HYSTERICAL, 01/22/18) HYSTERICALLY CRYING morphine (Unverified Allergy, Severe, SOB, 01/22/18) hydrocodone (Unverified Adverse Reaction, Unknown, Migraine, 01/22/18) Reported Meds & Prescriptions Reported Meds & Active Scripts Active Walker with Front Wheels (Device) 1 Mis Mis Ea .XX DIRECTED CPM-Continuous Passive Motion Machine 1 Ea Device Ea .XX DIRECTED Commode 3-in-1 (Device) 1 Mis Mis Ea .XX DIRECTED Reported Aspirin 325 Mg Tab 325 Mg PO DAILY Omeprazole 20 Mg Tab 20 Mg PO DAILY Sucralfate 1 Gram Tab 1 Gm PO DAILY on empty stomach Pravastatin 20 Mg Tab 20 Mg PO DAILY Alprazolam 0.25 Mg Tab 0.25 Mg PO Q6H PRN Calcium 600 with Vitamin D (Calcium Carbonate-Cholecalciferol) 600-400 mg-Unit Tab 1 Tab PO DAILY Vitamin D3 (Cholecalciferol) 2,000 Unit Cap 2,000 Units PO DAILY Sumatriptan (Sumatriptan Succinate) 25 Mg Tab 25 Mg PO ONCE PRN If a satisfactory response has not been obtained at 2 hours, a second dose may be administered Valacyclovir (Valacyclovir HCl) 500 Mg Tab 500 Mg PO DAILY Duloxetine DR (Duloxetine HCl) 30 Mg Capdr 30 Mg PO BID Flonase Nasal [place] (Fluticasone Nasal [place]) 50 Mcg/Act [place] 50 Mcg EACH NARE BID Zolpidem (Zolpidem Tartrate) 10 Mg Tab 10 Mg PO HS PRN Levothyroxine (Levothyroxine Sodium) 125 Mcg Tab 125 Mcg PO DAILY Bupropion HCl ER 24 HR (Bupropion HCl) 300 Mg Tab 300 Mg PO DAILY Review of Systems Except as stated in HPI: all other systems reviewed are Neg General / Constitutional: No: Fever, Chills HENT: No: Headaches, Neck Pain Cardiovascular: No: Chest Pain or Discomfort, Palpitations Respiratory: Positive: Cough, Shortness of Breath, No: Hemoptysis Gastrointestinal: No: Nausea, Vomiting, Abdominal Pain Genitourinary: Positive: Other (Right inguinal pain.) Musculoskeletal: Positive: Edema (Right knee right knee and calf), Pain Skin: No Rash, No Lesions Neurologic: No: Dizziness, Headache Physical Exam Narrative GENERAL: Well-developed well-nourished female in no acute respiratory distress. SKIN: Focused skin assessment warm/dry. HEAD: Atraumatic. Normocephalic. EYES: No scleral icterus. No injection or drainage. ENT: No nasal bleeding or discharge. Mucous membranes pink and moist. NECK: Trachea midline. Supple. CARDIOVASCULAR: Regular rate and rhythm. No murmur appreciated. RESPIRATORY: No accessory muscle use. Clear to auscultation. Breath sounds equal bilaterally. GASTROINTESTINAL: Abdomen soft, non-tender, nondistended. Hepatic and splenic margins not palpable. MUSCULOSKELETAL: No obvious deformity. No clubbing. No cyanosis. On examination patient's right knee, there is some mild edema. No redness or drainage. The surgical scar looks intact. She does have tenderness in her in her popliteal area. Cap refill less than 3 seconds. Palpable dorsalis pedis pulse. NEUROLOGICAL: Awake and alert. No obvious cranial nerve deficits. Motor grossly within normal limits. Normal speech. Data Data Last Documented VS Orders Orders Electrocardiogram (01/22/18 17:40) Complete Blood Count With Diff (01/22/18 18:42) Basic Metabolic Panel (Bmp) (01/22/18 18:42) Iv Access Insert/Monitor (01/22/18 18:42) Ecg Monitoring (01/22/18 18:42) Oximetry (01/22/18 18:42) Ct Pulmonary Angiogram (01/22/18 18:42) Us Leg Venous Doppler (01/22/18 18:42) Iohexol 350 Inj (Omnipaque 350 Inj) (01/22/18 20:13) Ed Discharge Order (01/22/18 20:31) Labs Laboratory Tests Test 01/22/18 18:15 White Blood Count 6.4 TH/MM3 Red Blood Count 3.62 MIL/MM3 Hemoglobin 11.6 GM/DL Hematocrit 35.3 % Mean Corpuscular Volume 97.5 FL Mean Corpuscular Hemoglobin 32.2 PG Mean Corpuscular Hemoglobin Concent 33.0 % Red Cell Distribution Width 15.5 % Platelet Count 266 TH/MM3 Mean Platelet Volume 9.1 FL Neutrophils (%) (Auto) 47.4 % Lymphocytes (%) (Auto) 29.4 % Monocytes (%) (Auto) 13.6 % Eosinophils (%) (Auto) 7.6 % Basophils (%) (Auto) 2.0 % Neutrophils # (Auto) 3.0 TH/MM3 Lymphocytes # (Auto) 1.9 TH/MM3 Monocytes # (Auto) 0.9 TH/MM3 Eosinophils # (Auto) 0.5 TH/MM3 Basophils # (Auto) 0.1 TH/MM3 CBC Comment DIFF FINAL Differential Comment Blood Urea Nitrogen 12 MG/DL Creatinine 0.74 MG/DL Random Glucose 90 MG/DL Calcium Level 9.3 MG/DL Sodium Level 139 MEQ/L Potassium Level 4.0 MEQ/L Chloride Level 106 MEQ/L Carbon Dioxide Level 24.0 MEQ/L Anion Gap 9 MEQ/L Estimat Glomerular Filtration Rate 78 ML/MIN MDM Medical Decision Making Medical Screen Exam Complete: Yes Emergency Medical Condition: Yes Differential Diagnosis Pulmonary embolus versus DVT versus bronchitis Narrative Course 72-year-old female 6 weeks status post knee replacement, presents here at the request of her primary care doctor to rule out pulmonary embolus. The patient has a ultrasound of the extremity as well as a pulmonary angiogram pending at this time. She is been signed out to Dr. Godfrey who will follow up on the tests and make the appropriate disposition. Diagnosis Primary Impression: Dyspnea Additional Impression: That is post knee replacement 6 weeks prior Codey Moreno MD Jan 22, 2018 18:16
[2018-01-22 18:58] LABS: BASOPHIL # 0.1 TH/MM3 (0-0.2); EOSINOPHIL # 0.5 TH/MM3 (0-0.4); EOSINOPHIL % 7.6 % (0.0-4.0); HEMATOCRIT 35.3 % (35.0-46.0); HEMOGLOBIN 11.6 GM/DL (11.6-15.3); LYMPH % 29.4 % (9.0-44.0); LYMPHOCYTE # 1.9 TH/MM3 (1.0-4.8); MEAN CELL VOLUME 97.5 FL (80.0-100.0); MEAN CORPUSCULAR HEMOGLOBIN 32.2 PG (27.0-34.0); MEAN PLATELET VOLUME 9.1 FL (7.0-11.0); MONO % 13.6 % (0.0-8.0); MONOCYTE # 0.9 TH/MM3 (0-0.9); NEUT % 47.4 % (16.0-70.0); PLATELET COUNT 266 TH/MM3 (150-450); RED BLOOD COUNT 3.62 MIL/MM3 (4.00-5.30); RED CELL DISTRIBUTION WIDTH 15.5 % (11.6-17.2); WHITE BLOOD COUNT 6.4 TH/MM3 (4.0-11.0)
[2018-01-22 19:23] LABS: CALCIUM 9.3 MG/DL (8.5-10.1); CREATININE 0.74 MG/DL (0.50-1.00)
[2018-01-22 19:30] VITALS: BP 121/80; PULSE 79; RESP 22; O2SAT 99
[2018-01-22] MEDS ORDERED: IOHEXOL 350 MG/ML 10 ML VIAL (for RAD DIAG) IVCONTRAST ONE (20:13)
--- NOTE | 2018-01-22 20:17 | RADRPT ---
EXAM DATE: 01/22/2018 8:12 PM EDT AGE/SEX: 72 years / Female INDICATIONS: Shortness of breath. Recent knee surgery. CLINICAL DATA: This is the patient's initial encounter. Patient reports that signs and symptoms have been present for 1 week and indicates a pain score of 3/10. MEDICAL/SURGICAL HISTORY: . Rowland's esophagus . Lumbar laminectomy RADIATION DOSE: 9.46 CTDI (mGy) [place] [facility] [place]17[place]. . TECHNIQUE: Volumetric scanning was performed using a multi-row detector CT scanner during bolus infu mahesh of 72 ml Omnipaque 350 (iohexol) nonionic water-soluble contrast as a single exam dose. The layne a was post processed with a variety of visualization algorithms including full volume maximum intensi ty projection and sliding thin slab reformation. Using automated exposure control and adjustment of the mA and/or kV according to patient size, radiation dose was kept as low as reasonably achievable t o obtain optimal diagnostic quality images. FINDINGS: Pulmonary Arteries: No filling defects are seen in the pulmonary arteries out to the subsegmental ve ssels. The left and right pulmonary arteries are normal in diameter. Lung: No infiltrates seen. Effusion: None. Mediastinum: No evidence of mediastinal or hilar adenopathy. Other: The axilla is unremarkable. There is stable cysts in the liver. CONCLUSION: 1. No evidence of pulmonary embolism. Electronically signed by: Marty Myles MD 01/22/2018 8:16 PM EDT
--- NOTE | 2018-01-22 20:27 | RADRPT ---
EXAM DATE: 01/22/2018 8:23 PM EDT AGE/SEX: 72 years / Female INDICATIONS: Right lower extremity pain and swelling s/p total knee replacement 6 weeks ago. CLINICAL DATA: This is the patient's initial encounter. Patient reports that signs and symptoms have been present for 3 days and indicates a pain score of 3/10. MEDICAL/SURGICAL HISTORY: Gastroesophageal reflux disease. Hypercholesterolemia. Fibromyalgia. Olaf's esophagus. Total knee replacement, right. Rotator cuff, right. section. Rig ht hip replacement. Right lower lobectomy. Tonsillectomy. Rhinoplasty. COMPARISON: No prior [facility] exams available for comparison. TECHNIQUE: Venous ultrasound of both lower extremities was performed from the inguinal ligament to t he proximal calf. Real-time, color Doppler and spectral tracing, compression and augmentation techni ques were used. FINDINGS: There is normal compressibility of the deep venous system from the inguinal region to the proximal ca lf. No echogenic clot is seen in the lumen of the common femoral, femoral, popliteal, and posterior tibial veins. There is a normal response of the venous system to proximal and distal augmentation an d respiration. There is a fluid collection in the popliteal fossa region measuring 4.7 x 2.4 x 2.1 cm no color flow. CONCLUSION: 1. No evidence of deep venous thrombosis. 2. Moderate-sized Cifuentes's cyst. Electronically signed by: Marty Myles MD 01/22/2018 8:26 PM EDT
--- NOTE | 2018-01-22 20:34 | PD ---
Physical Exam Date Seen by Provider: Jan 22, 2018 Time Seen by Provider: 19:30 Narrative Patient initially seen and evaluated by Dr. Moreno, please see his notes for further details. Signed out to me awaiting PE study and ultrasound of the right leg. Laboratory Tests Test 01/22/18 18:15 Red Blood Count 3.62 MIL/MM3 (4.00-5.30) Monocytes (%) (Auto) 13.6 % (0.0-8.0) Eosinophils (%) (Auto) 7.6 % (0.0-4.0) Eosinophils # (Auto) 0.5 TH/MM3 (0-0.4) Estimat Glomerular Filtration Rate 78 ML/MIN (>89) Last 24 hours Impressions Lower Extremity Ultrasound 01/22/18 1842 Signed Impressions: CONCLUSION: 1. No evidence of deep venous thrombosis. 2. Moderate-sized Cifuentes's cyst. CT Angiography 01/22/18 1842 Signed Impressions: CONCLUSION: 1. No evidence of pulmonary embolism. Ultrasound and CAT scan did not show any signs of PE, DVT, or other acute processes. She does have a Cifuentes cyst which could be causing the leg pain. At this point, my plan would be to release her with follow-up to primary care doctor. Return for new issues as needed. The plan has been discussed with her and she states understanding. Data Data Last Documented VS Vital Signs Date Time Temp Pulse Resp B/P (MAP) Pulse Ox O2 Delivery O2 Flow Rate FiO2 01/22/18 19:30 79 22 121/80 (94) 99 Room Air 01/22/18 17:37 97.4 Orders Orders Electrocardiogram (01/22/18 17:40) Complete Blood Count With Diff (01/22/18 18:42) Basic Metabolic Panel (Bmp) (01/22/18 18:42) Iv Access Insert/Monitor (01/22/18 18:42) Ecg Monitoring (01/22/18 18:42) Oximetry (01/22/18 18:42) Ct Pulmonary Angiogram (01/22/18 18:42) Us Leg Venous Doppler (01/22/18 18:42) Iohexol 350 Inj (Omnipaque 350 Inj) (01/22/18 20:13) Ed Discharge Order (01/22/18 20:31) Labs Laboratory Tests Test 01/22/18 18:15 White Blood Count 6.4 TH/MM3 Red Blood Count 3.62 MIL/MM3 Hemoglobin 11.6 GM/DL Hematocrit 35.3 % Mean Corpuscular Volume 97.5 FL Mean Corpuscular Hemoglobin 32.2 PG Mean Corpuscular Hemoglobin Concent 33.0 % Red Cell Distribution Width 15.5 % Platelet Count 266 TH/MM3 Mean Platelet Volume 9.1 FL Neutrophils (%) (Auto) 47.4 % Lymphocytes (%) (Auto) 29.4 % Monocytes (%) (Auto) 13.6 % Eosinophils (%) (Auto) 7.6 % Basophils (%) (Auto) 2.0 % Neutrophils # (Auto) 3.0 TH/MM3 Lymphocytes # (Auto) 1.9 TH/MM3 Monocytes # (Auto) 0.9 TH/MM3 Eosinophils # (Auto) 0.5 TH/MM3 Basophils # (Auto) 0.1 TH/MM3 CBC Comment DIFF FINAL Differential Comment Blood Urea Nitrogen 12 MG/DL Creatinine 0.74 MG/DL Random Glucose 90 MG/DL Calcium Level 9.3 MG/DL Sodium Level 139 MEQ/L Potassium Level 4.0 MEQ/L Chloride Level 106 MEQ/L Carbon Dioxide Level 24.0 MEQ/L Anion Gap 9 MEQ/L Estimat Glomerular Filtration Rate 78 ML/MIN [facility] Medical Record Reviewed: Yes Supervised Visit with DAMEON: No Diagnosis Primary Impression: Bakers cyst Disposition: 01 DISCHARGE HOME Condition: Stable SoonXochitl mullen MD Jan 22, 2018 20:34
--- NOTE | 2018-01-24 08:47 | EKG ---
Date Performed: 01/22/2018 Time Performed: 17:47:29 PTAGE: 72 years EKG: Sinus rhythm POSSIBLE LEFT ATRIAL ENLARGEMENT BORDERLINE ECG PREVIOUS TRACING : 11/29/2015 05.27 Since previous tracing, T-wave changes have improved. DOCTOR: Skyler Crandall Interpretating Date/Time 01/24/2018 08:46:15
== END 2018-01-22 21:15 | disposition home or self-care (01) ==
LOC: NEPE 17:16
DX: M71.21 Synovial cyst of popliteal space [Baker], right knee (principal); R06.00 Dyspnea, unspecified; F41.9 Anxiety disorder, unspecified; F32.9 Major depressive disorder, single episode, unspecified; E78.00 Pure hypercholesterolemia, unspecified; K21.9 Gastro-esophageal reflux disease without esophagitis; M79.7 Fibromyalgia; E07.9 Disorder of thyroid, unspecified; Z96.651 Presence of right artificial knee joint
CPT/HCPCS: 71275; 80048; 85025; 93005; 93971; 99285; Q9967